=== PATIENT | male | born 1960 ===

== ENCOUNTER 2017-03-06 11:19 | Emergency (ER) | payer OTHER, BC ==
[2017-03-06 11:23] VITALS: TEMP 98.1; O2SAT 97
[2017-03-06 11:24] VITALS: BMI 28.1
--- NOTE | 2017-03-06 11:39 | ED PDOC ---
Lower Extremity Pain/Injury Time Seen by Provider: 03/06/17 11:25 Chief Complaint (Nursing): Lower Extremity Problem/Injury Chief Complaint (Provider): left leg pain, fall History Per: Patient, EMS Additional Complaint(s): 56-year-old male presents to emergency Department with pain to left knee status post slip and fall at work just prior to arrival. Patient states that he slipped on wet floor. He denies dizziness or syncope prior to fall, he denies any head injury or loss of consciousness as a result of fall. He arrives via ambulance. Patient able to walk and bear weight but has pain to left leg when doing so. Past Medical History Reviewed: Historical Data, Nursing Documentation, Vital Signs Vital Signs: Last Vital Signs Temp 98.1 F 03/06/17 11:22 Pulse 72 03/06/17 11:22 Resp BP 143/101 H 03/06/17 11:22 Pulse Ox 97 03/06/17 11:22 - Medical History PMH: Hypercholesterolemia - Surgical History Surgical History: No Surg Hx - Family History Family History: States: No Known Family Hx - Living Arrangements Living Arrangements: With Family - Social History Current smoker - smoking cessation education provided: No Alcohol: None Drugs: Denies - Home Medications Home Medications: Ambulatory Orders Medication Instructions Recorded Ibuprofen [Motrin] 600 mg PO Q6 PRN #15 tab 03/06/17 - Allergies Allergies/Adverse Reactions: Allergies Allergy/AdvReac Type Severity Reaction Status Date / Time No Known Allergies Allergy Verified 03/06/17 11:39 Wells Criteria for PE - Wells Criteria for Pulmonary Embolism Clinical Signs and Symptoms of DVT: No P.E is #1 Diagnosis, or Equally Likely: No Heart Rate >100: No Immobilization at least 3 days;Surgery previous 4 weeks: No Previous, objectively diagnosed PE or DVT: No Hemoptysis: No Malignancy w/treatment within 6 months, or palliative: No Total Score: 0 Review of Systems ROS Statement: Except As Marked, All Systems Reviewed And Found Negative Musculoskeletal: Positive for: Other (left leg injury s/p accidental fall) Neurological: Positive for: Other (denies head injury or LOC) Physical Exam - Reviewed Nursing Documentation Reviewed: Yes Vital Signs Reviewed: Yes - Physical Exam Appears: Positive for: Well, Non-toxic, No Acute Distress Head Exam: Positive for: ATRAUMATIC, NORMAL INSPECTION Eye Exam: Positive for: Normal appearance, EOMI, PERRL Neck: Positive for: Painless ROM Back: Negative for: Vertebral Tenderness Extremity: Positive for: Other (Mild tenderness medial aspect of left knee with full range of motion, mild tenderness to posterior left tib-fib region, nontender left ankle and foot, normal distal sensation) Neurologic/Psych: Positive for: Alert, Oriented - ECG O2 Sat by Pulse Oximetry: 97 Pulse Ox Interpretation: Normal - Other Rad Left knee and tib/fib x-ray X-Ray: Interpreted by Me, Viewed By Me Medical Decision Making Medical Decision Makin-year-old male with left leg pain status post fall Plan: PO motrin X-ray left knee and tib/fib X-ray negative for fracture/dislocation. Crutches declined, knee immobilizer applied to affected leg. Patient given prescription for Motrin and referral to orthopedist options advisor. Procedures - Splinting Location: left leg Pre-Made Type: knee immobilizer Pre-Proc Neuro Vasc Exam: normal Post-Proc Neuro Vasc Exam: normal Disposition - Clinical Impression Clinical Impression: Knee sprain, Contusion of leg - Patient ED Disposition Is Patient to be Admitted: No Counseled Patient/Family Regarding: Studies Performed, Diagnosis, Need For Followup, Rx Given - Disposition Referrals: Carey Jurado MD [Staff Provider] - Disposition: Routine/Home Disposition Time: 12:32 Condition: STABLE Additional Instructions: Ice, rest and elevate affected area. Take rx meds as directed as needed for pain. Follow up with orthopedist in 2-3 days. Prescriptions: Ibuprofen [Motrin] 600 mg PO Q6 PRN #15 tab PRN Reason: Pain, Moderate (4-7) Instructions: Knee Pain (ED), Contusion in Adults (ED) Forms: [facility] ED School/Work Excuse
--- NOTE | 2017-03-06 12:37 | RAD ---
PROCEDURE: Left Knee Radiographs. HISTORY: Pain. COMPARISON: None. FINDINGS: BONES: Normal. No fracture. JOINTS: Normal. No osteoarthritis. JOINT EFFUSION: None. OTHER FINDINGS: The patella is unremarkable IMPRESSION: Normal radiographs of the left knee.
--- NOTE | 2017-03-06 12:39 | RAD ---
PROCEDURE: Radiographs of the left tibia and fibula. HISTORY: trauma COMPARISON: None available. TECHNIQUE: Frontal and lateral views obtained. FINDINGS: BONES: No fracture or destructive lesion. JOINT SPACES: Unremarkable. OTHER FINDINGS: None. IMPRESSION: Unremarkable radiographs of the left tibia and fibula.
[2017-03-06 12:44] VITALS: BP 135/84; PULSE 62; RESP 18
== END 2017-03-06 13:00 | disposition home or self-care (01) ==
LOC: H.ER 11:19
DX: S83.92XA Sprain of unspecified site of left knee, initial encounter (principal); S80.12XA Contusion of left lower leg, initial encounter; W18.40XA Slipping, tripping and stumbling without falling, unspecified, initial encounter; Y99.0 Civilian activity done for income or pay; E78.00 Pure hypercholesterolemia, unspecified